=== PATIENT | female | born 1995 | race Caucasian/White ===

== ENCOUNTER 2018-12-10 17:03 | Emergency (ER) | payer BC ==
[2018-12-10 17:23] VITALS: BP 129/75
--- NOTE | 2018-12-10 18:06 | UC ---
Complaint Female HPI - HPI Summary HPI Summary: HAS FELT TIRED WITH INTERMITTENT NAUSEA FOR A COUPLE OF WEEKS. THE PAST SEVERAL DAYS HAS DEVELOPED FOUL-SMELLING, CLOUDY URINE. HAS BEEN DRINKING A LOT OF WATER TO TRY AND RELIEVE HER SYMPTOMS WITHOUT SUCCESS. NO FEVER. NO BACK PAIN. DENIES ANY VAGINAL DISCHARGE. IS NOT CONCERNED ABOUT STD. USES NUVARING. - History Of Current Complaint Chief Complaint: UCGU Stated Complaint: POSSIBLE UTI Time Seen by Provider: 12/10/18 17:24 Hx Obtained From: Patient Hx Last Menstrual Period: 45 days Onset/Duration: Gradual Onset, Lasting Days, Still Present Severity Currently: Moderate Pain Intensity: 0 Pain Scale Used: 0-10 Numeric Character: Burning Aggravating Factor(s): Urination Alleviating Factor(s): Nothing Associated Signs And Symptoms: Positive: Nausea. Negative: Fever, Back Pain, Vaginal Bleeding/Discharge, Vaginal Discharge, Vomiting(# Of Episodes =) - Allergies/Home Medications Allergies/Adverse Reactions: Allergies Allergy/AdvReac Type Severity Reaction Status Date / Time codeine Allergy Vomiting Verified 12/10/18 17:24 Home Medications: Home Medications Bupropion XL* [Wellbutrin XL *] 1 tab PO DAILY 12/10/18 [History Confirmed 12/10] Topiramate TAB(*) [Topamax 25 MG tab] 1 tab PO DAILY 12/10/18 [History Confirmed 12/10/18] busPIRone TAB* [Buspar TAB*] 1 tab PO BID 12/10/18 [History Confirmed 12/10/18] traZODone TAB* [Desyrel TAB*] 1 tab PO DAILY 12/10/18 [History Confirmed ] PMH/Surg Hx/FS Hx/Imm Hx Psychological History: Anxiety, Depression - Surgical History Surgical History: None - Family History Known Family History: Positive: Non-Contributory - Social History Alcohol Use: Occasionally Substance Use Type: Prescribed Smoking Status (MU): Never Smoked Tobacco Review of Systems All Other Systems Reviewed And Are Negative: Yes Constitutional: Positive: Fatigue Skin: Positive: Negative Respiratory: Positive: Negative Cardiovascular: Positive: Negative Gastrointestinal: Positive: Negative Genitourinary: Positive: Frequency Physical Exam Triage Information Reviewed: Yes Appearance: Well-Appearing, No Pain Distress, Well-Nourished Vital Signs: Initial Vital Signs Temp 98.0 F 12/10/18 17:19 Pulse 89 12/10/18 17:19 Resp 16 12/10/18 17:19 BP 129/75 12/10/18 17:19 Pulse Ox 99 12/10/18 17:19 Vital Signs Reviewed: Yes Eyes: Positive: Conjunctiva Clear ENT: Positive: Hearing grossly normal Neck: Positive: Supple Respiratory: Positive: No respiratory distress, No accessory muscle use Cardiovascular: Positive: Pulses Normal Abdomen Description: Positive: Nontender, Soft. Negative: CVA Tenderness (R), CVA Tenderness (L), Distended, Guarding Musculoskeletal: Positive: No Edema Neurological: Positive: Alert Psychological: Positive: Age Appropriate Behavior Skin: Negative: Rashes Diagnostics - Laboratory Lab Results: URINE DIP SP. GR. 1.005, 1+ LEUKS. URINE HCG NEG Complaint Female Dx - Differential Dx/Diagnosis Provider Diagnosis: UTI (urinary tract infection) Discharge - Sign-Out/Discharge Documenting (check all that apply): Patient Departure All imaging exams completed and their final reports reviewed: No Studies - Discharge Plan Condition: Stable Disposition: HOME Prescriptions: Sulfamethox/Trimethoprim DS* [Bactrim DS 800/160 TAB*] 1 tab PO BID #10 tab Patient Education Materials: Urinary Tract Infection in Women (ED) Referrals: Geraldine Hoffman PRICING MANAGER [Primary Care Provider] - If Needed Additional Instructions: YOU DID HAVE SOME BACTERIA ON YOUR URINE DIP WHICH IS SUGGESTIVE OF UTI. WILL GO AHEAD AND COVER WITH ANTIBIOTICS. TAKE TWICE DAILY FOR THE FULL 5 DAYS. STAY WELL-HYDRATED. FOLLOW-UP WITH YOUR PCP IF YOUR SYMPTOMS ARE NOT IMPROVING EXPECTED WITH THIS TREATMENT. - Billing Disposition and Condition Condition: STABLE Disposition: Home
== END 2018-12-10 18:32 | disposition home or self-care (01) ==
LOC: UCEAST 17:03
DX: N39.0 Urinary tract infection, site not specified (principal); F41.9 Anxiety disorder, unspecified; F32.9 Major depressive disorder, single episode, unspecified; Z88.5 Allergy status to narcotic agent
CPT/HCPCS: 81002; 81025; 87086; 99212; G0463